=== PATIENT | male | born 1985 | race Caucasian/White ===

== ENCOUNTER 2020-04-24 15:46 | Inpatient (IN) ==
[2020-04-24] MEDS ORDERED: ONDANSETRON 4 MG/2 ML VIAL IV ONE (16:02)
[2020-04-24] MEDS ORDERED: HYDROmorphone 2 MG/1 ML VIAL IV STA (16:02)
[2020-04-24] MEDS ORDERED: DIPH/TET/ACEL PERT BOOSTER VACCINE 0.5 ML VIAL IM ONE (16:26)
[2020-04-24 16:43] LABS: Basophils # 0.1 10*3/uL (0.0-0.2); Basophils % 0.4 % (0.0-0.8); Eosinophils # 0.1 10*3/uL (0.0-0.87); Eosinophils % 0.5 % (0.00-10.9); Hematocrit 44.1 VOL% (42.0-52.0); Hemoglobin 15.2 GM/DL (14.0-18.0); Immature Granulocytes % 0.5 %; Immature Granulocytes Absolute 0.07 #; Lymphocytes # 2.4 10*3/uL (1.4-4.0); Lymphocytes % 16.2 % (21.2-54.2); Mean Corpuscular HGB Conc 34.5 GM/DL (32-36); Mean Corpuscular Volume 96.1 FL (87-102); Mean Platelet Volume 10.2 FL (9.6-12.0); Monocytes % 9.5 % (1.7-12.7); Neutrophils % 72.9 % (38.7-73.9); Platelet Count 263 T/CUMM (130-400); Red Blood Count 4.59 MC/CUMM (3.8-5.5); Red Cell Distribution Width 13.1 % (9.3-17.3); White Blood Count 14.7 T/CUMM (4-12)
[2020-04-24] MEDS ORDERED: diphenhydrAMINE CAP 25 MG CAPSULE PO PRN ×2 (16:50→17:53)
[2020-04-24] MEDS ORDERED: PROMETHAZINE 25 MG/1 ML VIAL IM PRN ×2 (16:50→17:53)
[2020-04-24] MEDS ORDERED: ONDANSETRON 4 MG/2 ML VIAL IV PRN ×3 (16:50→19:28)
[2020-04-24] MEDS ORDERED: BISACODYL 10 MG SUPP RECTAL PRN ×2 (16:50→17:53)
[2020-04-24] MEDS ORDERED: MAGNESIUM HYDROXIDE SUSP 30 ML UDCUP PO PRN ×2 (16:50→17:53)
[2020-04-24 17:00] LABS: Calcium 9.9 MG/DL (8.5-10.1)
[2020-04-24] MEDS ORDERED: LACTATED RINGERS 1,000 ML IV SCH (17:00)
[2020-04-24] MEDS ORDERED: ceFAZolin 1,000 MG VIAL ONE (17:33)
[2020-04-24] MEDS ORDERED: GENTAMICIN 80 MG/2 ML VIAL ONE (17:33)
[2020-04-24] MEDS ORDERED: MIDAZOLAM 2 MG/2 ML VIAL ONE (19:07)
[2020-04-24] MEDS ORDERED: propofoL 200 MG/20 ML VIAL IV ONE (19:07)
[2020-04-24] MEDS ORDERED: LIDOCAINE 2% 5 ML VIAL ONE (19:07)
[2020-04-24] MEDS ORDERED: fentaNYL 250 MCG/5 ML VIAL ONE (19:07)
[2020-04-24] MEDS ORDERED: SEVOFLURANE 1 UNIT/15 MINUTE INH ONE (19:07)
[2020-04-24] MEDS ORDERED: ESMOLOL 100 MG/10 ML VIAL IV ONE (19:08)
[2020-04-24] MEDS ORDERED: GLYCOPYRROLATE 0.4 MG/2 ML VIAL ONE (19:08)
[2020-04-24] MEDS ORDERED: fentaNYL 100 MCG/2 ML VIAL ONE (19:08)
[2020-04-24] MEDS ORDERED: ACETAMINOPHEN 1,000 MG/100 ML VIAL IV ONE (19:08)
[2020-04-24] MEDS ORDERED: DEXAMETHASONE 4 MG/1 ML VIAL ONE (19:08)
[2020-04-24] MEDS ORDERED: PHENYLEPHRINE 1 MG/10 ML SYRINGE IV ONE (19:08)
[2020-04-24] MEDS ORDERED: SUCCINYLCHOLINE 200 MG/10 ML VIAL ONE (19:09)
[2020-04-24] MEDS ORDERED: NEOSTIGMINE 10 MG/10 ML VIAL ONE (19:09)
[2020-04-24] MEDS ORDERED: ROCURONIUM 100 MG/10 ML VIAL IV ONE (19:09)
[2020-04-24] MEDS: HYDROmorphone 2 MG/1 ML VIAL IV PRN ×4 (19:35→19:50)
[2020-04-24] MEDS: LACTATED RINGERS 1,000 ML IV SCH (21:45)
[2020-04-24] MEDS: ceFAZolin 1,000 MG in SYRINGE 1 EACH IV SCH (23:18)
[2020-04-25] MEDS: LACTATED RINGERS 1,000 ML IV SCH ×2 (06:05→15:11)
[2020-04-25] MEDS: ceFAZolin 1,000 MG in SYRINGE 1 EACH IV SCH ×2 (09:16→15:11)
[2020-04-25 11:56] VITALS: BP 128/70
== END 2020-04-25 16:25 | disposition home or self-care (01) | DRG 494 ==
LOC: N.ED 15:46 → N.EDINP 16:50 → N.ED 17:10 → N.3E 20:39
PROVIDERS: ADMIT Orthopaedic Surgery; ATTEND Orthopaedic Surgery

== ENCOUNTER 2020-05-28 14:02 | Inpatient (IN) ==
[2020-05-28] MEDS ORDERED: TEMAZEPAM 15 MG CAPSULE PO PRN (17:28)
[2020-05-28] MEDS ORDERED: ONDANSETRON 4 MG/2 ML VIAL IV PRN (17:29)
[2020-05-28 18:57] LABS: Basophils # 0.1 10*3/uL (0.0-0.2); Basophils % 0.9 % (0.0-0.8); Eosinophils # 0.9 10*3/uL (0.0-0.87); Eosinophils % 8.9 % (0.00-10.9); Hematocrit 39.9 VOL% (42.0-52.0); Hemoglobin 13.5 GM/DL (14.0-18.0); Immature Granulocytes % 0.3 %; Immature Granulocytes Absolute 0.03 #; Lymphocytes # 3.2 10*3/uL (1.4-4.0); Lymphocytes % 30.8 % (21.2-54.2); Mean Corpuscular HGB Conc 33.8 GM/DL (32-36); Mean Corpuscular Volume 94.8 FL (87-102); Mean Platelet Volume 10.8 FL (9.6-12.0); Monocytes % 8.2 % (1.7-12.7); Neutrophils % 50.9 % (38.7-73.9); Platelet Count 295 T/CUMM (130-400); Red Blood Count 4.21 MC/CUMM (3.8-5.5); White Blood Count 10.4 T/CUMM (4-12)
[2020-05-28 19:21] LABS: Calcium 9.1 MG/DL (8.5-10.1); Osmolality,Calculated 274.7 MOS/KG (273-304)
[2020-05-28] MEDS: VANCOMYCIN INJ 1,000 MG in SODIUM CHLORIDE 0.9% 250 ML IV SCH (21:02)
[2020-05-29] MEDS: VANCOMYCIN INJ 1,000 MG in SODIUM CHLORIDE 0.9% 250 ML IV SCH ×2 (09:21→20:25)
[2020-05-29] MEDS: LACTATED RINGERS 1,000 ML IV SCH (14:36)
[2020-05-29] MEDS ORDERED: PROMETHAZINE 25 MG/1 ML VIAL IM PRN (14:42)
[2020-05-29] MEDS ORDERED: MAGNESIUM HYDROXIDE SUSP 30 ML UDCUP PO PRN (14:42)
[2020-05-29] MEDS ORDERED: diphenhydrAMINE CAP 25 MG CAPSULE PO PRN (14:42)
[2020-05-29] MEDS ORDERED: PROMETHAZINE INJ 25 MG in SODIUM CHLORIDE 0.9% 50 ML IV PRN (14:55)
[2020-05-29] MEDS ORDERED: HYDROmorphone 2 MG/1 ML VIAL IV PRN (14:55)
[2020-05-29] MEDS ORDERED: MEPERIDINE 25 MG/1 ML VIAL IV PRN (14:55)
[2020-05-29] MEDS ORDERED: diphenhydrAMINE 50 MG/1 ML VIAL IV PRN (14:55)
[2020-05-29] MEDS ORDERED: ONDANSETRON 4 MG/2 ML VIAL IV PRN (14:55)
[2020-05-29] MEDS: MORPHINE 4 MG/1 ML VIAL IV PRN ×2 (17:15→22:14)
[2020-05-29] MEDS ORDERED: VANCOMYCIN INJ 1,500 MG in SODIUM CHLORIDE 0.9% 500 ML IV SCH (21:00)
[2020-05-30] MEDS: LACTATED RINGERS 1,000 ML IV SCH ×2 (03:09→10:02)
[2020-05-30] MEDS: MORPHINE 4 MG/1 ML VIAL IV PRN ×5 (03:34→21:02)
[2020-05-30] MEDS: VANCOMYCIN INJ 1,000 MG in SODIUM CHLORIDE 0.9% 250 ML IV SCH ×2 (10:08→21:03)
[2020-05-30] MEDS ORDERED: DEXTROSE 50% 25 GM/50 ML VIAL IV PRN (15:53)
[2020-05-30] MEDS ORDERED: GLUCAGON 1 MG VIAL IM PRN (15:53)
[2020-05-31] MEDS: LACTATED RINGERS 1,000 ML IV SCH ×2 (00:50→12:38)
[2020-05-31] MEDS: MORPHINE 4 MG/1 ML VIAL IV PRN ×7 (00:50→23:09)
[2020-05-31] MEDS: VANCOMYCIN INJ 1,000 MG in SODIUM CHLORIDE 0.9% 250 ML IV SCH ×3 (05:19→23:26)
[2020-05-31] MEDS: CIPROFLOXACIN 500 MG TABLET PO SCH ×2 (09:03→21:52)
[2020-06-01] MEDS: MORPHINE 4 MG/1 ML VIAL IV PRN ×3 (02:29→08:57)
[2020-06-01] MEDS: LACTATED RINGERS 1,000 ML IV SCH ×3 (08:52→13:04)
[2020-06-01] MEDS: CIPROFLOXACIN 500 MG TABLET PO SCH (08:56)
[2020-06-01] MEDS: VANCOMYCIN INJ 1,000 MG in SODIUM CHLORIDE 0.9% 250 ML IV SCH (11:06)
[2020-06-01 11:28] VITALS: BP 121/74
== END 2020-06-01 13:25 | disposition home or self-care (01) | DRG 858 ==
LOC: N.ED 14:02 → N.3E 16:50
PROVIDERS: ADMIT Orthopaedic Surgery; ATTEND Orthopaedic Surgery

== ENCOUNTER 2020-10-31 10:29 | Inpatient (IN) ==
[2020-10-31 10:49] LABS: Basophils # 0.1 10*3/uL (0.0-0.2); Basophils % 0.5 % (0.0-0.8); Eosinophils # 0.3 10*3/uL (0.0-0.87); Eosinophils % 3.2 % (0.00-10.9); Hematocrit 42.7 VOL% (42.0-52.0); Hemoglobin 13.8 GM/DL (14.0-18.0); Immature Granulocytes % 0.4 %; Immature Granulocytes Absolute 0.04 #; Lymphocytes % 30.8 % (21.2-54.2); Mean Corpuscular HGB Conc 32.3 GM/DL (32-36); Mean Corpuscular Volume 95.7 FL (87-102); Mean Platelet Volume 9.5 FL (9.6-12.0); Neutrophils % 57.1 % (38.7-73.9); Platelet Count 438 T/CUMM (130-400); Red Blood Count 4.46 MC/CUMM (3.8-5.5); Red Cell Distribution Width 13.3 % (9.3-17.3); White Blood Count 9.7 T/CUMM (4-12)
[2020-10-31 11:04] LABS: Potassium 3.8 MMOL/L (3.5-5.1)
[2020-10-31] MEDS: LACTATED RINGERS 1,000 ML IV SCH ×2 (11:15→21:08)
[2020-10-31 11:28] LABS: Bilirubin,Urine Negative (Negative); Blood, Urine Negative (Negative); Glucose,Urine (UA) Negative (Negative); Ketones,Urine Negative (Negative); Nitrite,Urine Negative (Negative); Protein,Urine Negative; Urine Appearance CLEAR (Clear); Urine Color Yellow (Yellow); Urine Specific Gravity 1.017 (1.001-1.035); Urine Urobilinogen < 2.0 EU/DL (0.2-1.0); WBC,Urine <1 /HPF (0-6)
[2020-10-31] MEDS ORDERED: oxyCODONE/ACETAMINOPHEN 5-325 MG TABLET PO ONE (11:43)
[2020-10-31] MEDS ORDERED: DIAZEPAM 5 MG TABLET PO ONE (11:43)
[2020-10-31] MEDS ORDERED: fentaNYL 100 MCG/2 ML VIAL ONE (17:13)
[2020-10-31] MEDS ORDERED: ACETAMINOPHEN 1,000 MG/100 ML VIAL IV ONE (17:22)
[2020-10-31] MEDS ORDERED: SUGAMMADEX 200 MG/2 ML VIAL IV ONE (17:35)
[2020-10-31] MEDS ORDERED: LIDOCAINE 2% 5 ML VIAL ONE (17:54)
[2020-10-31] MEDS ORDERED: SEVOFLURANE 1 UNIT/15 MINUTE INH ONE (17:54)
[2020-10-31] MEDS ORDERED: propofoL 200 MG/20 ML VIAL IV ONE (17:54)
[2020-10-31] MEDS ORDERED: ONDANSETRON 4 MG/2 ML VIAL ONE (17:54)
[2020-10-31] MEDS ORDERED: ROCURONIUM 50 MG/5 ML VIAL IV ONE (17:54)
[2020-10-31] MEDS ORDERED: SUCCINYLCHOLINE 200 MG/10 ML VIAL ONE (17:54)
[2020-10-31] MEDS ORDERED: ONDANSETRON 4 MG/2 ML VIAL IV PRN (18:07)
[2020-10-31] MEDS ORDERED: BISACODYL 10 MG SUPP RECTAL PRN (18:07)
[2020-10-31] MEDS ORDERED: LACTULOSE 20 GM/30 ML UDCUP PO PRN (18:07)
[2020-10-31] MEDS ORDERED: MAGNESIUM HYDROXIDE SUSP 30 ML UDCUP PO PRN (18:07)
[2020-10-31] MEDS ORDERED: diphenhydrAMINE CAP 25 MG CAPSULE PO PRN (18:07)
[2020-10-31] MEDS ORDERED: PROMETHAZINE 25 MG/1 ML VIAL IM PRN (18:07)
[2020-10-31] MEDS ORDERED: HYDROmorphone 2 MG/1 ML VIAL ONE (18:14)
[2020-10-31] MEDS: HYDROmorphone 2 MG/1 ML VIAL IV PRN ×4 (18:16→18:40)
[2020-10-31] MEDS ORDERED: MEPERIDINE 25 MG/1 ML VIAL ONE (18:19)
[2020-10-31] MEDS ORDERED: MEPERIDINE 25 MG/1 ML VIAL IV PRN (18:19)
[2020-10-31] MEDS ORDERED: PROMETHAZINE INJ 25 MG in SODIUM CHLORIDE 0.9% 50 ML IV ONE (18:20)
[2020-10-31] MEDS: MORPHINE 4 MG/1 ML VIAL IV PRN (21:12)
[2020-11-01] MEDS: MORPHINE 4 MG/1 ML VIAL IV PRN ×6 (01:23→23:25)
[2020-11-01] MEDS: LACTATED RINGERS 1,000 ML IV SCH (22:41)
[2020-11-02] MEDS: MORPHINE 4 MG/1 ML VIAL IV PRN ×5 (06:00→22:16)
[2020-11-02] MEDS: CIPROFLOXACIN 500 MG TABLET PO SCH ×2 (08:53→20:53)
[2020-11-02] MEDS: FONDAPARINUX 2.5 MG/0.5 ML SYRINGE SUBCUT SCH (08:53)
[2020-11-02] MEDS ORDERED: CEFEPIME 2,000 MG in SODIUM CHLORIDE 0.9% 100 ML IV SCH (12:00)
[2020-11-02] MEDS: CEFEPIME 1,000 MG in SODIUM CHLORIDE 0.9% 100 ML IV SCH (17:22)
[2020-11-03] MEDS: CEFEPIME 1,000 MG in SODIUM CHLORIDE 0.9% 100 ML IV SCH ×4 (00:48→20:11)
[2020-11-03] MEDS: MORPHINE 4 MG/1 ML VIAL IV PRN ×6 (01:55→20:09)
[2020-11-03] MEDS: CIPROFLOXACIN 500 MG TABLET PO SCH ×2 (09:43→21:10)
[2020-11-03] MEDS: FONDAPARINUX 2.5 MG/0.5 ML SYRINGE SUBCUT SCH (09:44)
[2020-11-04] MEDS: MORPHINE 4 MG/1 ML VIAL IV PRN ×6 (01:22→23:46)
[2020-11-04] MEDS: CEFEPIME 1,000 MG in SODIUM CHLORIDE 0.9% 100 ML IV SCH ×4 (01:24→19:50)
[2020-11-04] MEDS: CIPROFLOXACIN 500 MG TABLET PO SCH ×2 (09:17→20:00)
[2020-11-04] MEDS: FONDAPARINUX 2.5 MG/0.5 ML SYRINGE SUBCUT SCH (09:18)
[2020-11-05] MEDS: MORPHINE 4 MG/1 ML VIAL IV PRN (02:32)
[2020-11-05] MEDS: CEFEPIME 1,000 MG in SODIUM CHLORIDE 0.9% 100 ML IV SCH ×2 (02:35→08:12)
[2020-11-05 07:32] VITALS: BP 113/64
[2020-11-05] MEDS: FONDAPARINUX 2.5 MG/0.5 ML SYRINGE SUBCUT SCH (08:12)
[2020-11-05] MEDS: CIPROFLOXACIN 500 MG TABLET PO SCH (08:12)
== END 2020-11-05 10:26 | disposition home or self-care (01) | DRG 496 ==
LOC: N.OR 10:29 → N.SDSINP 10:29 → N.3E 19:01
PROVIDERS: ADMIT Orthopaedic Surgery; ATTEND Orthopaedic Surgery